=== PATIENT | female | born 1960 | race Caucasian/White ===

== ENCOUNTER 2019-07-10 01:31 | Emergency (ER) | payer MEDICARE, OTHER ==
[2019-07-10] MEDS ORDERED: Acetaminophen 500 MG TAB ONE (02:03)
--- NOTE | 2019-07-10 10:41 | RAD ---
RIGHT FOOT 3 VIEWS: HISTORY: The patient slipped on a [place] craven and now has foot pain. FINDINGS: There is an obliquely oriented intraarticular fracture involving the proximal phalanx of the great to e. The bones are demineralized. Calcaneal spurs are present. IMPRESSION: Base of proximal phalanx great toe fracture. Essentially nondisplaced. POS: [facility]
== END 2019-07-10 02:32 | disposition home or self-care (01) ==
LOC: ERS 01:31
DX: S92.412A Displaced fracture of proximal phalanx of left great toe, initial encounter for closed fracture (principal); E78.5 Hyperlipidemia, unspecified; I12.0 Hypertensive chronic kidney disease with stage 5 chronic kidney disease or end stage renal disease; N18.6 End stage renal disease; Z79.899 Other long term (current) drug therapy; Z79.82 Long term (current) use of aspirin; W01.10XA Fall on same level from slipping, tripping and stumbling with subsequent striking against unspecified object, initial encounter